=== PATIENT | male | born 1985 | race Caucasian/White ===

== ENCOUNTER 2022-04-17 18:48 | Emergency (ER) | payer MEDICAID ==
[~2022-04-17] VITALS: Ht 170.2 cm; Wt 68.0 kg
[2022-04-17 18:57] VITALS: BP 152/85
[2022-04-17] MEDS ORDERED: IBUP-2213 PO (19:34)
[2022-04-17] MEDS ORDERED: ACETAMINOPHEN EXTRA STRENGTH 500 MG TAB PO ONE (19:35)
[2022-04-17] MEDS ORDERED: IBUPROFEN 600 MG TAB PO ONE (19:35)
--- NOTE | 2022-04-17 19:59 | NUR ---
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 STATES THAT HE 'REBROKE IT", WAS SEEN IN SECRET[facility] 2 DAYS AGO FOR SAME COMPLAINT. PER PT THEY GAVE HIM A BOOT IN SECRETARY BUT PT TOOK IT OFF AFTER RUNNING FROM THE REPAIR WELDER. STATES THAT THEY GAVE HIM A PRESCRIPTION OF NORCO BUT HE NEVER GOT IT NKA PMH: DENIES
[2022-04-17 20:12] VITALS: BP 152/85
--- NOTE | 2022-04-17 20:12 | NUR ---
Patient discharged. Written and verbal after care instructions given and explained. Patient alert, oriented and verbalized understanding of instructions. Wheel Chair Assisted to lobby with crutches. All questions addressed prior to discharge. ID band removed. Patient advised to follow up with PMD. Rx of ibuprofen given. Patient educated on indication of medication including possible reaction and side effects. Opportunity to ask questions provided and answered.
== END 2022-04-17 20:12 | disposition home or self-care (01) ==
LOC: MED 18:48
DX: S92.331A Displaced fracture of third metatarsal bone, right foot, initial encounter for closed fracture (principal); Z79.1 Long term (current) use of non-steroidal anti-inflammatories (NSAID); W22.8XXA Striking against or struck by other objects, initial encounter; Y92.89 Other specified places as the place of occurrence of the external cause; Y93.89 Activity, other specified; Y99.8 Other external cause status
CPT/HCPCS: 29515; 73630; 99283